=== PATIENT | female | born 1965 | race Caucasian/White ===

== ENCOUNTER 2016-08-10 14:20 | Emergency (ER) | payer OTHER ==
[~2016-08-10] VITALS: Ht 170.2 cm; Wt 114.0 kg
[2016-08-10 14:22] VITALS: BP 176/96; PULSE 72; RESP 18; TEMP 97.6; O2SAT 94
--- NOTE | 2016-08-10 14:43 | PD ---
HPI Chief Complaint: Musculoskeletal Complaint Time Seen by Provider: 14:38 Travel History International Travel<30 days: No Contact w/Intl Traveler<30days: No Traveled to known affect area: No History of Present Illness HPI The patient is a 50-year-old female who presents to the emergency department for left hand pain. Patient was offered short on a fishing boat, when a door closed between her hand in the door frame. The patient complains of a superficial abrasion of the extensor surface of the mid left hand with some swelling and ecchymosis. The pain is worse with palpation and movement, slightly alleviated at rest. The patient has been applying ice to the affected area. She denies any numbness certainly to the left hand. Her last tetanus shot was 3 years ago. She is right-hand dominant. She does take aspirin and Plavix for history of CAD with previous stent placement. Symptoms are moderate , exacerbated after direct trauma to the left hand, and slightly alleviated with ice. PFSH Past Medical History Cardiovascular Problems: Yes Diabetes: Yes ?: Not Past Surgical History Narrative Surgical Noncontributory Social History Tobacco Use: Yes Allergies-Medications (Allergen,Severity, Reaction): Coded Allergies: Glucophage (Verified Allergy, Intermediate, RASH, 08/10/16) Reported Meds & Prescriptions Reported Meds & Active Scripts Active Reported Lisinopril 20 Mg Tab 20 Mg PO DAILY Atorvastatin (Atorvastatin Calcium) 40 Mg Tab 40 Mg PO HS Elavil (Amitriptyline HCl) 25 Mg Tab 100 Mg PO HS Novolog Inj (Insulin Aspart) 1,000 Unit/10 Ml Vial 0 SQ DIRECTED Sliding Scale as directed. Plavix (Clopidogrel Bisulfate) 75 Mg Tab 75 Mg PO DAILY Aspirin EC (Aspirin) 81 Mg Tabdr 81 Mg PO DAILY Review of Systems Except as stated in HPI: all other systems reviewed are Neg Musculoskeletal: Positive: Limited ROM, Edema, Pain Skin: Positive Other (superficial abrasion to the extensor surface the left hand according to the patient) Neurologic: No: Paresthesia, Sensory Disturbance Physical Exam Narrative GENERAL: Awake, alert, very pleasant 50-year-old female who appears her stated age and is in no acute respiratory distress. SKIN: Focused skin assessment warm/dry. HEAD: Atraumatic. Normocephalic. EYES: No injection or drainage. MUSCULOSKELETAL: The left hand has ecchymosis and edema noted of the extensor surface with a 1 cm x 1 cm superficial abrasion. Patient is able flex at the MCP, PIP, and DIP, limited range of motion of the third and fourth digit secondary to pain. Positive left radial pulse. The patient is able supinate and pronate the left forearm as well as flex and extend the left wrist. Capillary refills less than 2 seconds. NEUROLOGICAL: Awake and alert. No obvious cranial nerve deficits. Motor grossly within normal limits. Normal speech. Sensation is intact on the distal aspect of all 5 digits of the left hand. PSYCHIATRIC: Appropriate mood and affect; insight and judgment normal. Data Data Last Documented VS Vital Signs Date Time Temp Pulse Resp B/P Pulse Ox O2 Delivery O2 Flow Rate FiO2 08/10/16 14:22 97.6 72 18 176/96 94 Orders Hand, Complete ([id number]) (08/10/16 ) Wound Care (08/10/16 14:38) [facility] Medical Decision Making Medical Screen Exam Complete: Yes Emergency Medical Condition: Yes Medical Record Reviewed: Yes Interpretation(s) X-ray of the hand reveals extensive soft tissue swelling with no acute fracture or malalignment. Differential Diagnosis Differential diagnosis includes fracture, sprain, strain, hematoma, contusion, compartment syndrome. Narrative Course An x-ray of the left hand was obtained. The patient's tetanus shot is up to date. X-rays negative for fracture. The patient requested pain medication prior to clean in the left hand, therefore, was administered [place] 5 mg orally. The patient is advised to wrap with an Leonard wrap, compression, elevation, ice, and pain medication as directed. Diagnosis Primary Impression: Traumatic hematoma of left hand Qualified Code: S60.222A - Traumatic hematoma of left hand, initial encounter Patient Instructions: General Instructions Additional Instructions: Leonard wrap to left hand. Elevate, ice, Tylenol and or Motrin as needed for pain. Follow-up with her primary physician. Med/Other Pt SpecificInfo: Prescription(s) given Scripts Ibuprofen 400 Mg [id number] Mg PO Q6H PRN (PAIN SCALE 1 TO 10) #20 TAB Ref 0 Prov:Sarkis Ravi MD 08/10/16 Disposition: 01 DISCHARGE HOME Condition: Stable Sarkis Ravi MD Aug 10, 2016 14:43
[2016-08-10] MEDS ORDERED: PLAV75TA29 PO (14:49)
[2016-08-10] MEDS ORDERED: ASPI81TA11 PO (14:49)
[2016-08-10] MEDS ORDERED: ATOR40TA16 PO (14:49)
[2016-08-10] MEDS ORDERED: AMIT1TAB79 PO (14:49)
[2016-08-10] MEDS ORDERED: NOVOLOGP2 SQ (14:49)
[2016-08-10] MEDS ORDERED: LISI-515 PO (14:49)
--- NOTE | 2016-08-10 15:20 | RADHPO ---
EXAM DATE/TIME: 08/10/2016 14:47 [facility] COMPARISON: No previous studies available for comparison. INDICATIONS : Slammed hand in door. MEDICAL HISTORY : None. 1990 previous fracture of 4th metacarpal. SURGICAL HISTORY : None. ENCOUNTER: Initial ACUITY: 1 day PAIN SCORE: 9/10 LOCATION: Left posterior Hand FINDINGS: AP, lateral and oblique views of the left hand were obtained and demonstrate extensive soft tissue sw elling over the dorsum of the hand with no acute fracture or malalignment. The metacarpals and phalan ges are intact. The carpus and distal radius and ulnar are intact as well. CONCLUSION: Extensive soft tissue swelling with no acute fracture or malalignment. James Mukherjee MD on August 10, 2016 at 15:17 Board Certified Radiologist. This report was verified electronically.
[2016-08-10] MEDS ORDERED: ACETAMINOPHEN/HYDROcodone 325 MG/5 MG TAB PO ONE (15:30)
[2016-08-10] MEDS ORDERED: IBUP400T20 PO (15:31)
[2016-08-10] MEDS ORDERED: NORC5TAB PO (15:52)
== END 2016-08-10 16:10 | disposition home or self-care (01) ==
LOC: PHEFT 14:20
DX: S60.222A Contusion of left hand, initial encounter (principal); E11.9 Type 2 diabetes mellitus without complications; W23.0XXA Caught, crushed, jammed, or pinched between moving objects, initial encounter; Y93.19 Activity, other involving water and watercraft; Y92.814 Boat as the place of occurrence of the external cause
CPT/HCPCS: 73130; 99283